=== PATIENT | male | born 1960 | race Two or more races ===

== ENCOUNTER 2019-01-14 03:30 | Emergency (ER) | payer OTHER ==
[~2019-01-14] VITALS: Ht 180.3 cm; Wt 93.4 kg
[~2019-01-14 03:30] MED LIST: KETO10TA2 PO; OMEPRAZOLE40 MG; TAMS0.4C PO; TOPROL XL50 M1
[2019-01-14] MEDS ORDERED: LOSARTAN POTASS25 MG (03:40)
[2019-01-14] MEDS ORDERED: ZANTAC300 MG (03:41)
== END 2019-01-14 09:33 | disposition home or self-care (01) ==
LOC: ER 03:30
DX: N20.1 Calculus of ureter (principal); N20.0 Calculus of kidney

== ENCOUNTER → 2019-05-14 | Outpatient (CLI) | payer OTHER ==
[~2019-05-14] MED LIST changes: +LOSARTAN POTASS25 MG; +ZANTAC300 MG
== END | disposition home or self-care (01) ==
LOC: MRI 07:22
DX: N20.0 Calculus of kidney (principal); N28.1 Cyst of kidney, acquired
CPT/HCPCS: 74183

== ENCOUNTER 2024-07-10 21:55 | Emergency (ER) | payer OTHER ==
[~2024-07-10] VITALS: Ht 182.9 cm; Wt 86.2 kg
[2024-07-10] MEDS ORDERED: PANTOPRAZOLE SO40 MG PO (21:58)
[2024-07-11] MEDS ORDERED: KETOROLAC TROMETHAMINE 10 MG TABLET PO STA (00:49)
[2024-07-11 01:09] LABS: HEMATOCRIT 40.5 % (39.0-48.0); HEMOGLOBIN 13.7 g/dL (13-16.00); MEAN CELL VOLUME 88.3 fL (80.0-100.00); MEAN CORPUSCULAR HEMOGLOBIN 29.8 pg (27.00-32.0); MEAN CORPUSCULAR HGB CONC 33.8 g/dl (32.0-36.0); PLATELET COUNT 260 K/uL (150-450); RED BLOOD COUNT 4.58 M/uL (4.00-6.00); RED CELL DISTRIBUTION WIDTH 13.5 % (11.5-14.5)
[2024-07-11 01:54] LABS: PH,URINE 7.5 (5.0-8.0); URINE APPEARANCE Clear; URINE BILIRRUBIN Negative (NEGATIVE); URINE COLOR Yellow; URINE GLUCOSE Negative (NEGATIVE); URINE KETONE Negative (NEGATIVE); URINE LEUKOCYTE Negative; URINE NITRATE Negative; URINE PROTEIN Negative (NEGATIVE)
[2024-07-11 01:57] LABS: URINE BACTERIA 8.5 uL (0.0-1933); URINE EPITHELIAL CELLS 5.8 uL (0.0-38.8); URINE RBC 62.7 uL (0.0-20.8); URINE WBC 4.4 uL (0.0-23.2)
[2024-07-11 02:05] LABS: URINE BLOOD TRACES; URINE CAST 0.29 uL (0.0-1.40)
[2024-07-11] MEDS ORDERED: KETO10TA2 PO (03:52)
[2024-07-11] MEDS ORDERED: TAMS0.4C PO (03:52)
== END 2024-07-11 04:02 ==
LOC: ER 21:57
PROVIDERS: General Practice
DX: N20.0 Calculus of kidney (principal); R31.9 Hematuria, unspecified; I10 Essential (primary) hypertension